=== PATIENT | female | born 1975 | race African-American/Black ===

== ENCOUNTER 2020-10-09 15:57 | Emergency (ER) | payer OTHER ==
[2020-10-09 16:12] VITALS: BMI 35.0
[2020-10-09] MEDS ORDERED: ASPIRIN 81 MG CHEWABLE TABLETS PO ONE (16:49)
[2020-10-09] MEDS ORDERED: amLODIPine BESYLATE 10 MG TABLET (FP) PO ONE (17:41)
[2020-10-09 17:50] LABS: BASO % 1.5 % (0-2.0); HEMATOCRIT 37.5 % (32.4-45.2); HEMOGLOBIN 12.4 GM/dL (10.7-15.3); LYMPH % 30.6 % (8-40); MCH 30.5 pg (25.7-33.7); MEAN CELL VOLUME 92.5 fl (80-96); MEAN PLT VOLUME 7.1 fl (7.5-11.1); MONO % 9.2 % (3.8-10.2); NEUT % 57.7 % (42.8-82.8); PLATELET COUNT 362 K/MM3 (134-434); RBC 4.05 M/mm3 (3.60-5.2); RDW 12.8 % (11.6-15.6); WHITE BLOOD COUNT 7.6 K/mm3 (4.0-10.0)
[2020-10-09 17:58] LABS: INR 1.11 (0.83-1.09); PROTHROMBIN TIME (PATIENT) 13.4 SEC (9.7-13.0)
[2020-10-09 18:00] LABS: ACTIVATED PTT 42.9 SECONDS (25.2-36.5)
[2020-10-09] MEDS ORDERED: ASPIRIN 81 MG CHEWABLE TABLETS ONE (18:02)
[2020-10-09] MEDS ORDERED: amLODIPine BESYLATE 5 MG TABLET (FP) ONE (18:02)
[2020-10-09 18:09] LABS: CHLORIDE 104 mmol/L (98-107); POTASSIUM 3.5 mmol/L (3.5-5.1); SODIUM 138 mmol/L (136-145)
[2020-10-09 18:11] LABS: CALCIUM 9.6 mg/dL (8.5-10.1)
[2020-10-09 18:12] LABS: ALBUMIN 4.2 g/dl (3.4-5.0); ANION GAP 9 MMOL/L (8-16); BLOOD UREA NITROGEN 9.5 mg/dL (7-18); CO2 25 mmol/L (21-32); GLUCOSE,RANDOM 108 mg/dL (74-106)
[2020-10-09 18:15] LABS: CREATININE 0.9 mg/dL (0.55-1.3); SGOT/AST 19 U/L (15-37); SGPT/ALT 30 U/L (13-61)
[2020-10-09 18:16] LABS: TOT PROT 8.2 g/dl (6.4-8.2)
[2020-10-09 18:17] LABS: BILIRUBIN,TOTAL 0.3 mg/dL (0.2-1)
[2020-10-09 18:18] LABS: ALK PHOS 79 U/L (45-117)
[2020-10-09 21:18] VITALS: BP 139/88; PULSE 88; TEMP 98
== END 2020-10-09 21:19 | disposition home or self-care (01) ==
LOC: JER 15:57
DX: R07.9 Chest pain, unspecified (principal)
CPT/HCPCS: 36415; 71046-TC-FY; 80053; 82550; 82553; 83735; 84484; 84703; 85025; 85610; 85730; 93005; 93010; 99285-25